=== PATIENT | female | born 1965 | race Caucasian/White ===

== ENCOUNTER 2016-08-02 00:52 | Inpatient (IN) | payer OTHER ==
[2016-08-02] VITALS (12 sets, daily range): BP systolic 98–110; BP diastolic 52–76
[~2016-08-02] VITALS: Ht 170.1 cm; Wt 75.5 kg
--- NOTE | ~2016-08-02 | EKG ---
[place], [place] ELECTROCARDIOGRAM REPORT NAME: SARA CALVILLO UNIT #: [id number] ROOM: 428 DOCTOR: AYUSH NATION MD BIRTHDATE: [birth year] DOS: 08/02/2016 TIME: 1 hour and 5 minutes. EKG shows sinus tachycardia with a heart rate of 104 beats per minute. Normal cardiac axis. Right bundle-branch block. Nonspecific ST-T abnormality. Needs clinically correlated. AYUSH NATION MD CM:EKGRPT:ELECTROCARDIOGRAM REPORT [id number] AYUSH NATION MD
--- NOTE | ~2016-08-02 | WRIGHTHP ---
[place], [place] PATIENT HISTORY AND PHYSICAL EXAM NAME: SARA CALVILLO [facility] #: [id number] UNIT #: [id number] ROOM: 428 DOCTOR: AYUSH NATION MD BIRTHDATE: [birth year] DOS: 08/02/2016 HISTORY OF PRESENT ILLNESS: The patient is a 50-year-old female with a past medical history of: 1. Benign essential hypertension. 2. History of left bundle branch block. 3. Appendectomy. The patient presented to the Emergency Department at [facility] with upper abdominal pains and was seen by Dr. Parks. The patient had worsening symptoms along with some nausea, but no vomiting, no diarrhea or constipation for a few days. The patient also had these symptoms last year in 02/2016 about 5 months back. The patient was evaluated in the Emergency Department and diagnosed to have ____ bowel thickening compatible with acute enteritis involving the ____ associated with ____ edema adjacent to the affected bowel loop. The patient was recommended for admission for further management and is being seen by Dr. Ashraf, the phlebotomist lab assistant and Dr. Gasca, the general surgeon. The patient being hydrated with normal saline and started to feeling somewhat better. No chest pain, no shortness of breath, no GI or urinary symptoms. The patient says with her severe abdominal pain she had one episode where she blacked out and fainted for only 10 seconds. REVIEW OF SYSTEMS: LUNGS: No increasing shortness of breath or wheezing. GASTROINTESTINAL: The patient with acute upper abdominal pain. CARDIOVASCULAR: No chest pains or palpitations. LUNGS: No shortness of breath or wheezing. SOCIAL HISTORY: The patient is . Denies alcohol and drug abuse. FAMILY HISTORY: Noncontributory. HOME MEDICATIONS: The patient takes lisinopril at home. ALLERGIES LIST: The patient is allergic to Dilaudid. PHYSICAL EXAMINATION: GENERAL: Alert, oriented x 3 in no visible distress. HEENT AND NECK: Extraocular movements are intact. Sclerae are anicteric. Oral mucosa is moist and clean. No obvious facial weakness. Neck is supple without any lymphadenopathy. No thyromegaly. No JVD. No carotid arterial bruits. LUNGS: Clear to auscultation. No wheezing. No rhonchi. CARDIOVASCULAR SYSTEM: Heart rate is regular in rate and rhythm. S1 and S2 normally audible. No significant murmur or any other abnormal cardiac sounds. ABDOMEN: Epigastric and left upper quadrant tenderness. No rigidity, guarding, or rebound tenderness. No obvious organomegaly. Bowel sounds are present. EXTREMITIES: Without significant cyanosis or edema. Warm to touch. CENTRAL NERVOUS SYSTEM: Alert and oriented x 3. Cranial nerves II-XII are intact. Speech is normal. The patient is able to move all extremities. Normal muscle strength. Deep tendon reflexes are equal on both sides. Plantars were [place], [place] PATIENT HISTORY AND PHYSICAL EXAM NAME: SARA CALVILLO UNIT #: [id number] ROOM: [facility] DOCTOR: AYUSH NATION MD BIRTHDATE: [birth year] downgoing. LABORATORY DATA AND DIAGNOSTIC STUDIES: CT scan results as mentioned above. Urinalysis with 5-10 wbc's. CBC showing leukocytosis with white cell count of 14,500, hemoglobin 16.8, normal platelets. IMPRESSION AND PLAN: 1. The patient presenting with acute enteritis and thickening of the duodenal wall and the adjacent mesentery edema. I would consider inflammatory bowel disease versus acute bacterial infection. Dr. Ashraf has recommended treatment with antibiotics and no corticosteroids at this time. The patient has been told that she will ultimately require biopsy of this area for further diagnosis. Dr. Gasca, the general surgeon, is also following her. 2. Acute nausea and vomiting from acute enteritis, being treated with promethazine, which helps her pain. The patient is allergic to Dilaudid. The patient is being treated with metronidazole and Zosyn and also kept on omeprazole. 3. Benign essential hypertension with controlled blood pressures. The patient takes lisinopril. AYUSH NATION MD CM:HISPHYS:PATIENT HISTORY AND PHYSICAL EXAMINATION 13 16 AYUSH NATION MD 08/02/162113 interface
--- NOTE | ~2016-08-02 | CON ---
[place], [place] REPORT OF CONSULTATION NAME: SARA CALVILLO [facility] #: [id number] UNIT #: [id number] ROOM: 428 DOCTOR: MADELINE NASH MD BIRTHDATE: [birth year] DOS: 08/03/2016 GASTROENDOSCOPIC REPORT HISTORY OF PRESENT ILLNESS: The patient is a 50-year-old who has presented with chief complaint of ambiguous abdominal pain, undergoing investigation. She had a panel of blood work done. White blood cells initially was 14.5, H and H of 16 and 51. Differential was noticed. INR was 0.9. Comprehensive metabolic panel: Glucose is 193, BUN and creatinine 24 and 1.2. Electrolytes balanced. Liver function test normal. Troponin normal. Lipase and C-reactive protein was normal and lactic acid was 3.0. Chest x-ray was reviewed, no acute cardiopulmonary disease. CT scan of the head was obtained. No acute intracranial pathology. Lactic acid followup was normal. CT scan of the abdomen without contrast, jejunal bowel wall thickening with mesenteric edema was suspected, possibility of infection was raised. CBC: White blood cell followup was normal. H and H of 10 and 33 was noticed. Urine culture was no infection. CT scan of the abdomen was organized with p.o. and IV contrast. In this study, there is a small amount of free fluid adjacent to the liver, otherwise there is no bowel thickening. There is no lymph node enlargement. There is no report of acute abdominal findings. Main organs including base of lung, liver, pancreas, spleen, adrenal glands, gallbladder and kidneys demonstrate no pathology. PAST MEDICAL HISTORY: Suspected sepsis, suspected left bundle branch block, otherwise, history of hypocalcemia, hypothyroidism. ALLERGIES: DILAUDID. MEDICATIONS: At home, lisinopril for hypertension, dicyclomine for irritable bowel syndrome, omeprazole 20 mg for gastritis. REVIEW OF SYSTEMS: HEENT: In general, denies double vision, blurred vision. RESPIRATORY: Denies shortness of breath. CARDIOVASCULAR: Denies acute chest pain. DIGESTIVE SYSTEM: Nonspecific abdominal pain as identified above. PHYSICAL EXAMINATION: VITAL SIGNS: Stable. HEENT: Head normocephalic, nontraumatic. Mouth and buccal mucosa benign. NECK: Supple, no thyromegaly. CHEST: Symmetric anatomy, equal expansion. No wheeze, no rhonchi. HEART: Normal sinus rhythm. No gallop, no murmur. ABDOMEN: Soft. No hepato-organomegaly. Bowel sounds present. EXTREMITIES: No cyanosis, no pedal edema. NEUROLOGIC: Alert, oriented to time, place and person. LABORATORY DATA: Reviewed. Records reviewed. Data reviewed. IMPRESSION: [place], [place] REPORT OF CONSULTATION NAME: SARA CALVILLO UNIT #: [id number] ROOM: 428 DOCTOR: MADELINE NASH MD BIRTHDATE: [birth year] 1. Nonspecific abdominal pain. 2. History of hypertension. 3. History of hypothyroidism. PLAN AND DISCUSSION: The patient does not appear to be convinced that pathology is found yet. I have offered surgical consultation, although the abdomen does not appear to be surgical at all. The opinion was appreciated. PLAN AND DISCUSSION: This patient is offered to have a small bowel follow-through x-ray tomorrow morning if she stays, and at that stage, we may have slightly more answers to be explained. MADELINE NASH MD CM:CONSTR:REPORT OF CONSULTATION 1554 09/05/16 1412 interface
--- NOTE | ~2016-08-02 | PR ---
[place], [place] PROGRESS NOTE [id number] UNIT #: [id number] ROOM: 428 DOCTOR: HERMES BRUNSON MD BIRTHDATE: [birth year] DOS: 08/03/2016 SUBJECTIVE: She is doing much better, does not have any new complaints. She does not have any nausea and emesis. Abdominal pain is still persistent. OBJECTIVE: VITAL SIGNS: Graphic trend shows a pressure of 128/70, pulse of 69, respirations 16, temperature 98.3. LUNGS: Diminished breath sounds, clear. HEART: Regular. ABDOMEN: Obese, soft. Tenderness mostly in the left upper quadrant area. EXTREMITIES: Without any edema. LABORATORY DATA: Urine culture is negative. White cell count is normalized at 4.9, hemoglobin 10.7. BMP: Glucose 84, BUN 14, creatinine 0.99. ASSESSMENT AND PLAN: Sepsis with lactic acid elevation, white cell count elevation and CT scan showing jejunitis. Discussed with Dr. Ashraf. The patient needs to have stool testing for ova and parasites. Unfortunately, she has not had any bowel movement for days. He also suggested doing a repeat CT of the abdomen and pelvis with contrast before proceeding with a small bowel follow through as an outpatient, so her diet is going to be held today. We will do the CT scan. Dr. Ashraf will see the patient and after the CT is done, we will decide on feeding her and possible discharge to home. If she does go home, she will need to have a small bowel follow through as an outpatient to rule out small bowel Crohn's. HERMES BRUNSON MD CM:PNTRANS [id number] HERMES BRUNSON MD 08/03/16 0922 interface
[~2016-08-02 00:52] MED LIST: CALCIUM + D SO1 EACH PO; CARAFATE1 G1 PO; CIPRO500 MG PO; DICYCLOMINE HCL10 MG PO; FLAGYL500 MG PO; HYDROCHLOROTHIA25 MG PO; LISINOPRIL/HCTZ1 TA3 PO; OMEPRAZOLE20 M2 PO; PRILOSEC20 MG PO; ULTRAM50 MG PO; ZOFRAN ODT4 MG SL
[2016-08-02] MEDS ORDERED: VITAMIN D50000 I3 PO (01:02)
[2016-08-02 01:20] LABS: BASO % 0.3 % (0.0-1.0); EOS % 0.3 % (1.0-4.0); HEMATOCRIT 51.3 % (37.0-47.0); HEMOGLOBIN 16.8 g/dl (12.0-16.0); LYMPH % 13.9 % (27.0-41.0); MEAN CELL VOLUME 91.3 fl (81.0-99.0); MEAN CORPUSCULAR HGB 29.9 pg (27.0-31.0); MEAN CORPUSCULAR HGB CONC 32.7 g/dl (33.0-37.0); MEAN PLATELET VOLUME 9.1 fl (9.6-12.3); MONO # 0.6 10*3/uL (0.1-1.0); MONO % 4.3 % (3.0-9.0); NEUT # 11.7 10*3/uL (2.3-7.9); PLATELET COUNT AUTOMATED 363 10*3/uL (130-400); RED BLOOD COUNT 5.62 10*6/uL (4.10-5.10); WHITE BLOOD COUNT 14.5 10*3/uL (4.8-10.8)
[2016-08-02 01:29] LABS: INTERNATIONAL NORM RATIO 0.9 (2.0-3.5)
[2016-08-02 01:37] LABS: ALBUMIN 4.1 gm/dl (3.1-4.5); ALKALINE PHOSPHATASE 64 U/L (45-117); BILIRUBIN, TOTAL 0.5 mg/dl (0.2-1.0); BUN 24 mg/dl (7-24); CARBON DIOXIDE 29 mmol/L (21-32); CHLORIDE 98 mmol/L (98-107); EST GLOM FILT AFRICAN AMERICAN 56 ml/min; GLUCOSE 193 mg/dL (65-99); POTASSIUM 4.1 mmol/L (3.5-5.1); SGOT/AST 21 IU/L (3-35); SGPT/ALT 33 U/L (12-78); SODIUM 140 mmol/L (136-145); TOTAL PROTEIN 7.5 gm/dL (6.4-8.2); TROPONIN I < 0.015 ng/ml (<0.5)
[2016-08-02 01:39] LABS: C-REACTIVE PROTEIN < 0.29 MG/DL (0-0.3)
[2016-08-02 03:29] LABS: LA>2 REFLEX 2 HR DRAW NOW
[2016-08-02 10:32] LABS: BILIRUBIN NEGATIVE (NEGATIVE); BLOOD NEGATIVE (NEGATIVE); CLARITY SL CLOUDY (CLEAR); COLOR YELLOW (YELLOW); GLUCOSE NEGATIVE (NEGATIVE); KETONE NEGATIVE (NEGATIVE); LEUKO ESTERASE NEGATIVE (NEGATIVE); NITRITE NEGATIVE (NEGATIVE); PH 5.5 (5.0-9.0); PROTEIN 1+ (NEGATIVE); SPECIFIC GRAVITY >= 1.030 (1.005-1.030); UROBILINOGEN 0.2 E.U./dl (0.2-1.0)
[2016-08-02 10:44] LABS: BACTERIA 2+; MUCOUS 3+; URINE REFLEX COMMENT YES (NO)
[2016-08-03] VITALS: BP 116/63
[2016-08-03 06:02] LABS: BASO % 0.4 % (0.0-1.0); EOS # 0.1 10*3/uL (0.0-0.4); EOS % 2.1 % (1.0-4.0); LYMPH # 2.2 10*3/uL (1.3-4.4); LYMPH % 44.7 % (27.0-41.0); MEAN CORPUSCULAR HGB 30.3 pg (27.0-31.0); MEAN CORPUSCULAR HGB CONC 31.6 g/dl (33.0-37.0); MEAN PLATELET VOLUME 9.4 fl (9.6-12.3); MONO # 0.4 10*3/uL (0.1-1.0); MONO % 7.2 % (3.0-9.0); NEUT # 2.2 10*3/uL (2.3-7.9); NEUT % 45.2 % (47.0-73.0); RED BLOOD COUNT 3.53 10*6/uL (4.10-5.10); RED CELL DISTRI WIDTH 13.2 % (0-14.5); WHITE BLOOD COUNT 4.9 10*3/uL (4.8-10.8)
[2016-08-03 06:03] LABS: HEMATOCRIT 33.9 % (37.0-47.0); PLATELET COUNT AUTOMATED 186 10*3/uL (130-400)
[2016-08-03 06:06] LABS: HEMOGLOBIN 10.7 g/dl (12.0-16.0)
[2016-08-03 06:22] LABS: CARBON DIOXIDE 26 mmol/L (21-32); CHLORIDE 113 mmol/L (98-107); EST GLOM FILT AFRICAN AMERICAN > 60 ml/min; GLUCOSE 84 mg/dL (65-99); POTASSIUM 3.6 mmol/L (3.5-5.1); SODIUM 148 mmol/L (136-145)
[2016-08-03 06:23] LABS: BUN 14 mg/dl (7-24)
[2016-08-03 08:00] VITALS: BP 128/70
[2016-08-03 12:00] VITALS: BP 143/73
[2016-08-03 16:00] VITALS: BP 136/86
== END 2016-08-03 16:51 | disposition home or self-care (01) | DRG 872 ==
LOC: ED 00:52 → EDHOLD 05:52 → 4E 09:02
PROVIDERS: Emergency Medicine Emergency Medical Services; Internal Medicine
DX: A41.9 Sepsis, unspecified organism (principal); I10 Essential (primary) hypertension; E03.9 Hypothyroidism, unspecified; E78.5 Hyperlipidemia, unspecified; K52.9 Noninfective gastroenteritis and colitis, unspecified; Z90.49 Acquired absence of other specified parts of digestive tract; Z88.8 Allergy status to other drugs, medicaments and biological substances; Z79.899 Other long term (current) drug therapy

== ENCOUNTER → 2018-07-11 | Outpatient (CLI) | payer OTHER ==
[~2018-07-11] MED LIST changes: +CEPHALEXIN500 M1 PO; +VITAMIN D50000 I3 PO
[2018-07-11 16:23] LABS: CREATININE 1.25 mg/dL (0.55-1.02)
== END | disposition home or self-care (01) ==
PROVIDERS: Nurse Practitioner Women's Health
DX: Z01.818 Encounter for other preprocedural examination (principal)

== ENCOUNTER → 2020-06-26 | Outpatient (CLI) | payer OTHER | END | disposition home or self-care (01) | LOC: COVID19 13:55 | PROVIDERS: ATTEND Nurse Practitioner | DX: Z20.828 Contact with and (suspected) exposure to other viral communicable diseases (principal) ==

== ENCOUNTER 2020-09-02 10:27 | Emergency (ER) | payer OTHER ==
[~2020-09-02] VITALS: Ht 170.1 cm; Wt 77.1 kg
[2020-09-02 10:35] VITALS: BP 140/81
== END 2020-09-02 14:25 | disposition home or self-care (01) ==
LOC: ED 10:27
DX: S56.312A Strain of extensor or abductor muscles, fascia and tendons of left thumb at forearm level, initial encounter (principal); I10 Essential (primary) hypertension; Z90.49 Acquired absence of other specified parts of digestive tract; Z88.8 Allergy status to other drugs, medicaments and biological substances; Z79.899 Other long term (current) drug therapy; Z98.890 Other specified postprocedural states; X58.XXXA Exposure to other specified factors, initial encounter; Y93.89 Activity, other specified; Y92.89 Other specified places as the place of occurrence of the external cause; Y99.8 Other external cause status

== ENCOUNTER → 2024-12-06 | Outpatient (CLI) | payer OTHER | END | disposition home or self-care (01) | LOC: LAB 12:00 | DX: R19.7 Diarrhea, unspecified (principal) ==

== ENCOUNTER → 2024-12-07 | Outpatient (CLI) | payer OTHER ==
[2024-12-07 08:17] LABS: BASO % 0.7 % (0.0-1.0); EOS # 0.2 10*3/uL (0.0-0.4); EOS % 2.7 % (1.0-4.0); HEMATOCRIT 42.3 % (37.0-47.0); MEAN CELL VOLUME 92.4 fl (81.0-99.0); MEAN CORPUSCULAR HGB 30.1 pg (27.0-31.0); MEAN CORPUSCULAR HGB CONC 32.6 g/dl (33.0-37.0); MEAN PLATELET VOLUME 8.5 fl (9.6-12.3); MONO # 0.5 10*3/uL (0.1-1.0); MONO % 8.2 % (3.0-9.0); NEUT # 3.2 10*3/uL (2.3-7.9); NEUT % 57.7 % (47.0-73.0); PLATELET COUNT AUTOMATED 226 10*3/uL (130-400); RED BLOOD COUNT 4.58 10*6/uL (4.10-5.10); RED CELL DISTRI WIDTH 12.7 % (0-14.5); WHITE BLOOD COUNT 5.6 10*3/uL (4.8-10.8)
[2024-12-07 09:54] LABS: ALKALINE PHOSPHATASE 71 U/L (46-116); BUN 14 mg/dl (9-23); CHLORIDE 106 mmol/L (98-107); POTASSIUM 4.7 mmol/L (3.4-5.1); SGPT/ALT 70 U/L (5-49); TOTAL PROTEIN 7.1 gm/dL (6.0-8.0)
== END | disposition home or self-care (01) ==
LOC: LAB 07:46
DX: R19.7 Diarrhea, unspecified (principal); Z90.49 Acquired absence of other specified parts of digestive tract

== ENCOUNTER → 2024-12-24 | Outpatient (CLI) | payer OTHER | END | disposition home or self-care (01) | LOC: US 07:58 | DX: K76.0 Fatty (change of) liver, not elsewhere classified (principal); R74.8 Abnormal levels of other serum enzymes; Z90.49 Acquired absence of other specified parts of digestive tract ==